=== PATIENT | female | born 1970 | race Hispanic/Latino ===

== ENCOUNTER 2018-02-06 16:45 | Emergency (ER) | payer OTHER ==
[~2018-02-06] VITALS: Ht 149.9 cm; Wt 68.0 kg
[~2018-02-06 16:45] MED LIST: LEVOTHYROXINE0.1 MG PO; MEDROL DOSEPAK1 PAC PO; ROBITUSSIN W/CO10 ML PO; TESSALON PERLE100 MG PO
--- NOTE | 2018-02-06 19:32 | ULTRASOUND REPORT ---
EXAMINATION: US TRIPLEX LOWER EXTREMITY, RIGHT CLINICAL INFORMATION: Right lower extremity swelling and redness COMPARISON: None TECHNIQUE: Color-flow triplex imaging with spectral analysis and compression Doppler were performed on the lower extremity. FINDINGS: Respiratory variation, normal compression and augmented flow are noted throughout the lower extremity. The visualized common femoral vein, superficial femoral vein, profunda femoral vein, popliteal vein and midcalf peroneal and posterior tibial venous segments show no evidence of deep venous thrombosis. There is no Malin's cyst. IMPRESSION: No evidence of deep venous thrombosis involving the lower extremity.
--- NOTE | 2018-02-06 19:39 | ED GENERAL ADULT ---
History of Present Illness General Chief Complaint: Lower Extremity Problems Stated Complaint: SIB URGENT CARE FOR US, R/O DVT Source: patient Exam Limitations: no limitations Vital Signs & Intake/Output Vital Signs & Intake/Output Vital Signs Date Time Temp Pulse Resp B/P B/P Pulse O2 O2 Flow FiO2 Mean Ox Delivery Rate 02/06 1905 Room Air 02/06 1658 96.9 105 16 96 Room Air ED Intake and Output 02/07 0000 02/06 1200 Intake Total 0 Output Total Balance 0 Intake, Oral 0 Patient 150 lb Weight Weight Reported by Patient Measurement Method Allergies Coded Allergies: NO KNOWN ALLERGIES (10/01/14) Reconcile Medications Benzonatate (Tessalon Perle) 100 MG SGL 1 TAB PO TID COUGH Cephalexin (Keflex) 500 MG CAPSULE 1 CAP PO Q6H cellulitis Levothyroxine Sodium 0.1 MG TAB 0.1 MG PO DAILY AC thyroid (Reported) Methylprednisolone. (Medrol) 1 PAC PAC 1 PAC PO AD INFLAMMATION Robitussin AC (Guaifenesin-Codeine Syrup) 10 ML UDC 1 TAB PO TID PRN COUGH Triage Note: 47 Y/O FEMALE C/O REDNESS TO TOP OF R FOOT X 1-2 WEEKS. C/O WARMTH AT SITE AND SWELLING TO R FOOT. NO OPEN AREAS NOTED. Triage Nurses Notes Reviewed? yes Onset: Abrupt Duration: day(s): (3), constant, continues in ED, getting worse Timing: single episode today Injury Environment: home Severity: mild, moderate Severity Numbers: 8 No Modifying Factors: none Modifying Factors: Worsens With: movement. HPI: 47-year-old female history of hypothyroidism presents for evaluation of pain swelling and redness in her right lower extremity. She reports symptoms initially started with swelling about a week ago. The redness first appeared 2 or 3 days ago and has been spreading. She reports that the swelling is worse in her foot and ankle and the redness has been spreading up her leg. No fevers no trauma no history of DVT no recent surgery. No chest pain or shortness of breath. She is able to walk. (Eric Tejeda) Past History Travel History Traveled to [place] past 21 day No Medical History Any Pertinent Medical History? see below for history Neurological: NONE EENT: NONE Cardiovascular: NONE Respiratory: bronchitis Gastrointestinal: NONE Hepatic: NONE Renal: NONE Musculoskeletal: NONE Psychiatric: NONE Endocrine: HYPOTHYROID Blood Disorders: NONE Cancer(s): NONE [employer]/Reproductive: NONE Influenza Vaccine: 05/10/09 Surgical History Surgical History: non-contributory Psychosocial History What is your primary language Bengali Tobacco Use: Never used Family History Hx Contributory? No (Eric Tejeda) Review of Systems Review of Systems Constitutional: Reports: no symptoms. EENTM: Reports: no symptoms. Respiratory: Reports: no symptoms. Cardiovascular: Reports: edema. GI: Reports: no symptoms. Genitourinary: Reports: no symptoms. Musculoskeletal: Reports: no symptoms. Skin: Reports: see HPI, erythema. Neurological/Psychological: Reports: no symptoms. Hematologic/Endocrine: Reports: no symptoms. Immunologic/Allergic: Reports: no symptoms. All Other Systems: Reviewed and Negative (Eric Tejeda) Physical Exam Physical Exam General Appearance: well developed/nourished, no apparent distress, alert, awake Head: atraumatic, normal appearance Eyes: Bilateral: normal appearance, PERRL, EOMI. Ears, Nose, Throat: normal pharynx, normal ENT inspection, hearing grossly normal Neck: normal inspection, supple, full range of motion Respiratory: normal breath sounds, chest non-tender, no respiratory distress, lungs clear Cardiovascular: regular rate/rhythm, normal peripheral pulses Peripheral Pulses: 2+ radial (R), 2+ radial (L) Gastrointestinal: normal bowel sounds, soft, non-tender, no organomegaly Back: normal inspection, normal range of motion, no vertebral tenderness Extremities: normal range of motion, THERE IS SWELLING OF THE RT LOWER EXTREMITY FROM THE FOOT TO JUST INFERIOR TO THE KNEE. THERE AREA AREAS OF ERYTHEMA LOCATED ON THE RT LOWER EXTREMITY NO FOCAL FLUCTUANT AREA OR DISCHARGE, N/V SUPPLY INTACT Neurologic/Psych: no motor/sensory deficits, awake, alert, oriented x 3, normal gait Skin: intact, normal color, cyanosis Lymphatic: no anterior cervical meoñ Core Measures ACS in differential dx? No CVA/TIA Diagnosis: No Sepsis Present: No Sepsis Focused Exam Completed? No (Eric Tejeda) Progress Differential Diagnoses I considered the following diagnoses in my evaluation of the patient: [ CELLULITIS, DVT, ABSCESS, FRACTURE ] Plan of Care: PT is here for evaluation of pain swelling and redness to the right lower extremity. On exam she does have what appears to be cellulitis to the right lower extremity. Neurovascular supplies intact she is not a diabetic she is afebrile. Ultrasound is negative for DVT. Patient will be started on cephalexin 500 mg every 6 hours for 10 days. Advised rest keep the leg elevated Tylenol ibuprofen for pain follow-up with the primary care doctor in a few days for recheck discussed return precautions patient agrees the plan Diagnostic Imaging: Viewed by Me: Ultrasound. Discussed w/RAD: Ultrasound. Radiology Impression: ATIENT: LIAM HAGEN PRESENT AGE: 47 PATIENT ACCOUNT NO: [id number] : 69 LOCATION: [facility] ORDERING PHYSICIAN: Eric DELGADO SERVICE DATE: 02/06/18 EXAM TYPE: US - US- DUPLEX VENOUS EXTREM UNI EXAMINATION: US TRIPLEX LOWER EXTREMITY, RIGHT CLINICAL INFORMATION: Right lower extremity swelling and redness COMPARISON: None TECHNIQUE: Color-flow triplex imaging with spectral analysis and compression Doppler were performed on the lower extremity. FINDINGS: Respiratory variation, normal compression and augmented flow are noted throughout the lower extremity. The visualized common femoral vein, superficial femoral vein, profunda femoral vein, popliteal vein and midcalf peroneal and posterior tibial venous segments show no evidence of deep venous thrombosis. There is no Malin's cyst. IMPRESSION : No evidence of deep venous thrombosis involving the lower extremity. DICTATED BY: Moshe Arthur MD DATE/TIME DICTATED:02/06/181927 SUPERVISOR IN CHARGE: SHARLENE DATE/TIME TRANSCRIBED:02/06/181927 CONFIDENTIAL, DO NOT COPY WITHOUT APPROPRIATE AUTHORIZATION. <Electronically signed in Other Vendor System> SIGNED BY: Moshe Arthur MD 02/06/181931 Initial ED EKG: none (Eric Tejeda) Departure Departure Disposition: HOME OR SELF CARE Condition: Stable Clinical Impression Primary Impression: Cellulitis Qualifiers: Site of cellulitis: extremity Site of cellulitis of extremity: lower extremity Laterality: right Qualified Code: L03.115 - Cellulitis of right lower limb Referrals: Angela Mccray DO (PCP/Family) Additional Instructions: Rest, keep her leg elevated. Take antibiotics as directed for the full course. Tylenol ibuprofen for pain or fevers. Make a follow-up appointment with her primary care doctor in the next few days for recheck. Monitor symptoms if he noticed spreading redness worsening swelling fever or any other concerns return immediately. Departure Forms: Customer Survey General Discharge Information Prescriptions: Current Visit Scripts Cephalexin (Keflex) 1 CAP PO Q6H #40 CAP (Eric Tejeda) PA/[facility] Co-Sign Statement Statement: ED Attending supervision documentation- I saw and evaluated the patient. I have also reviewed all the pertinent lab results and diagnostic results. I agree with the findings and the plan of care as documented in the PA's/[facility]'s documentation. x I have reviewed the ED Record and agree with the PA's/[facility]'s documentation. [] Additions or exceptions (if any) to the PAs/[facility]'s note and plan are summarized below: [] (Adiel STACY,Mic) Critical Care Note Critical Care Note Critical Care Time: non-applicable (Eric Tejeda)
[2018-02-06] MEDS ORDERED: KEFLEX500 M1 PO (19:42)
== END 2018-02-06 19:54 ==
LOC: ERH 16:45
DX: L03.115 Cellulitis of right lower limb (principal)